=== PATIENT | female | born 1985 | race Caucasian/White ===

== ENCOUNTER → 2021-02-22 02:20 | Outpatient (CLI) | payer OTHER, SELFPAY ==
[2021-02-23 16:27] LABS: SARS-CoV-2 RNA PCR Negative
== END ==
PROVIDERS: PCP Family Medicine; Visit Provider Obstetrics & Gynecology Gynecology
DX: Z01.812 Encounter for preprocedural laboratory examination (principal); Z20.822 Contact with and (suspected) exposure to COVID-19
CPT/HCPCS: C9803; U0003; U0005

== ENCOUNTER 2021-02-25 01:19 | Day surgery (SDC) | payer OTHER, SELFPAY ==
[2021-02-14 15:04] VITALS: BMI 36.1
[2021-02-25] MEDS: ACETAMINOPHEN 500 MG TABLET 1000 MG PO (13:09)
[2021-02-25 13:21] VITALS: BP 128/75; PULSE 78; RESP 16; TEMP 36.7; O2SAT 97; BMI 36.1
--- NOTE | 2021-02-25 13:33 | WPDANESEPPF ---
Anes - Initial Pre Proc Eval Procedure: Operation Date: 02/25/21 14:00 Proposed Procedures p Hysteroscopy, Dilation and Curettage, Possible Myosure - Padma Desouza MD Date/Time: 02/25/21 13:33 Surgeon: Padma Desouza MD Pre Op Diagnosis: fibroid Patient Data Age: 35 Gender: F Height: 1.59 m Weight: 91.2 kg Last Vital Signs Temp 36.7 C 02/25/21 13:21 Pulse 78 02/25/21 13:21 Resp 16 02/25/21 13:21 BP 128/75 02/25/21 13:21 Pulse Ox 97 02/25/21 13:21 Allergies Allergy/AdvReac Type Severity Reaction Status Date / Time benzoyl peroxide Allergy Severe FACIAL Verified 02/25/21 12:51 SWELLING morphine Allergy Nausea and Verified 02/25/21 12:51 Vomiting Home Medications Medication Instructions Recorded Confirmed Type biotin 1,000 mcg PO DAILY 02/14/21 02/25/21 History loratadine-pseudoephedrine 1 tablet PO DAILY 02/14/21 02/25/21 History [Claritin-D 24 Hour] montelukast 10 mg PO HS 02/14/21 02/25/21 History norethindrone-e.estradiol-iron 1 tablet PO DAILY 02/14/21 02/25/21 History [June ()] Patient hx anesthesia problems: none Family hx anesthesia problems: none PMFSH Past Medical History Medical History (Updated 02/25/21 @ 13:33 by Peter Yanez MD) Obesity Surgical History Surgical History (Updated 02/25/21 @ 13:33 by Peter Yanez MD) H/O exploratory laparotomy Social History Social History Smoking status: Never smoker Alcohol intake: current Alcohol use details: 1-2 DRINKS PER MONTH Substance use: current Substance use type: marijuana Other substance usage details: ONCE OR TWICE A MONTH Last use: 01/19/21 Living arrangements: alone Spiritual care concerns: No Anes - Eval Final PreProcedure Day of Procedure 02/25/21 13:33 Patient weight: obese Heart: regular rate and rhythm Lungs: clear to auscultation Airway: Mallampati scale class 1 Neurological: alert and oriented Last oral intake: >/= 8 hours ASA classification: II Emergent: no Anesthetic plan: proceed Anesthesia type and monitoring: general GIVS and standard monitoring Informed Consent: The patient's anesthetic plan and its attendant risks and benefits were discussed with the patient/family/POA. Questions were solicited and answers provided to the satisfaction of the patient/family/POA.
--- NOTE | 2021-02-25 13:54 | PM.HPGS ---
History of Present Illness History of Present Illness Consent: Risks, benefits, and alternatives have been discussed and questions answered. Patient agrees to proceed with procedure. Chief complaint: fibroid Narrative: Petra Mejia is a 35 year old female with abnormal pelvic ultrasound showing slightly atypical attenuation in the posterior superior uterus suspicious for fibroid but not the typical appearance. Patient complains of increased pressure on her cycles but otherwise has no complaints of pain. Patient's cycles are controlled with oral contraceptives. The uterus is enlarged at 12cm. Was recommended to proceed with further evaluation with hysteroscopy and D&C. Risks of infection, bleeding, and perforation were reviewed. Possible pathology is also discussed. Review of Systems Review of Systems: Narrative: not repeated day of surgery; patient states no changes in status PMFSH Past Medical History Medical History (Updated 02/25/21 @ 14:00 by Pdama Desouza MD) History of kidney stones Obesity Surgical History Surgical History (Updated 02/25/21 @ 13:58 by Padma Desouza MD) H/O exploratory laparotomy S/P D&C (status post dilation and curettage) x 1 2007 for SAb S/P LEEP Social History Social History Smoking status: Never smoker Alcohol intake: current Alcohol use details: 1-2 DRINKS PER MONTH Substance use: current Substance use type: marijuana Other substance usage details: ONCE OR TWICE A MONTH Last use: 01/19/21 Living arrangements: alone Spiritual care concerns: No Meds Home Medications and Allergies Home Medications Medication Instructions Recorded Confirmed Type biotin 1,000 mcg PO DAILY 02/14/21 02/25/21 History loratadine-pseudoephedrine 1 tablet PO DAILY 02/14/21 02/25/21 History [Claritin-D 24 Hour] montelukast 10 mg PO HS 02/14/21 02/25/21 History norethindrone-e.estradiol-iron 1 tablet PO DAILY 02/14/21 02/25/21 History [Junel FE .01/30 ()] Allergies Allergy/AdvReac Type Severity Reaction Status Date / Time benzoyl peroxide Allergy Severe FACIAL Verified 02/25/21 12:51 SWELLING morphine Allergy Nausea and Verified 02/25/21 12:51 Vomiting Vital Signs Vital Signs - 24 hr 02/25/21 13:21 Temperature 98.0 F Pulse Rate 78 Respiratory Rate 16 Blood Pressure 128/75 Pulse Oximetry 97 Exam Const: General: healthy appearing and alert Orientation/consciousness: patient oriented x3 Resp: Effort & Inspection: normal respiratory effort Auscultation: clear to auscultation bilaterally Cardio: Rate: regular rate Rhythm: regular rhythm GI: GI Palp: Yes Soft to palpation, No Tenderness to palpation present (GI) and No Palpable mass present : External Female Exam: normal external appearance Speculum Exam - Vagina: normal appearance of the vagina and normal vaginal discharge Speculum Exam - Cervix: normal appearance of the cervix Bimanual exam- vagina & uterus: enlarged (12 weeks) Bimanual Exam- Adnexa, other: tender (to right also firm) Neuro: General: patient oriented x3 Assessment and Plan Assessment and plan (1) Abnormal pelvic ultrasound: Code(s): R93.89 - Abnormal findings on diagnostic imaging of other specified body structures Status: Acute Assessment and Plan: Plan is to further evaluate endometrial cavity with hysteroscopy with D&C and Myosure as needed
[2021-02-25] MEDS: LACTATED RINGERS 1,000 ML 30 ML IV CONT (13:56)
--- NOTE | 2021-02-25 14:01 | WPDHPUPDATE1 ---
History and Physical Update Update Date/Time: 02/25/21 14:01 History and Physical has been reviewed, including an updated exam of the patient. There are NO changes in the patient's condition. Risks, benefits, and alternatives have been discussed and questions answered. Patient agrees to proceed with procedure.
--- NOTE | 2021-02-25 14:29 | W.PM.PROC2 ---
Procedure Note - Detailed Date of Procedure 02/25/21 Pre-op Diagnosis abnormal pelvic u/s Post-op Diagnosis same Procedure Performed Hysteroscopy D&C Surgeon Padma Desouza MD Anesthesia MAC and local Findings The cervix is very stenotic and has thickened scar tissue on the 7 to 12 o'clock positions. The uterus sounds to 11-1/2cm and appears grossly normal. Description of Procedure The patient was taken to the operating room and placed under anesthesia in the dorsal lithotomy position. She was prepped and draped in usual sterile fashion. The bivalve speculum was placed in the vagina and the cervix was grasped on the anterior lip with a tenaculum. The cervix was injected with 1% lidocaine in each quadrant. The uterus is sounded to 6-1/2cm. The cervix is serially dilated with Hegar with difficulty due to stenosis. The diagnostic hysteroscope was placed and at the approximately 6cm area at the deep part of the cervix there is dense scar tissue. The camera was able to go around the scar tissue and into the endometrial cavity which appears grossly normal. Endocervical curettings and endometrial curettings were taken. All instruments are removed. Sponge, needle, and instrument counts are correct per the OR staff. Patient was awakened from anesthesia and taken to recovery in stable condition. Estimated Blood Loss 5 Drains No Packing No Pathology yes (Endocervical and endometrial curettings) Complications No immediate complications Condition stable Disposition PACU
[2021-02-25 14:30] VITALS: BP 127/81; PULSE 74; RESP 16; O2SAT 97
[2021-02-25 14:53] VITALS: BP 123/72; PULSE 71; RESP 16; O2SAT 97
[2021-02-25] MEDS: ONDANSETRON INJ 4 MG/2 ML VIAL IV PUSH (15:07)
--- NOTE | 2021-02-25 15:09 | SUR.PHASEII ---
1515- c/o nausea. medicated for same.
[2021-02-25 15:25] VITALS: BP 121/69; PULSE 68; RESP 16; O2SAT 97
== END 2021-02-25 15:43 | disposition home or self-care (01) ==
PROVIDERS: PCP Family Medicine; Visit Provider Obstetrics & Gynecology Gynecology
PROC: 0U5B8ZZ Destruction of Endometrium, Via Natural or Artificial Opening Endoscopic (ICD-10-PCS; CPT 58563; principal; 2021-02-25 14:00)
DX: R93.89 Abnormal findings on diagnostic imaging of other specified body structures (principal); E66.9 Obesity, unspecified; Z68.36 Body mass index [BMI] 36.0-36.9, adult; F12.90 Cannabis use, unspecified, uncomplicated
CPT/HCPCS: 58558; 88305; A9270; C9803; J2250; J2405; J2704; J3010; J7030; J7120; U0003; U0005